=== PATIENT | female | born 1975 | race Caucasian/White ===

== ENCOUNTER → 2017-06-08 | Outpatient (CLI) | payer OTHER ==
[~2017-06-08] MED LIST: CYANOCOBAL1000 MCG/M PO; LEXAPRO 20 MG T20 MG PO; LORATADINE 10MG10 M1 PO; OMEPRAZOLE20 MG PO; PROBIOTIC250 MG PO; SPIRONOLACTONE25 MG PO
--- NOTE | 2017-06-13 11:52 | RADIOLOGY REPORT PS360 ---
DIG MAMM-SCREEN MARGARITO W/CAD CAD Screening COMPARISON: Digital mammograms 06/09/2016 INDICATION: There is a history of breast cancer in patient's paternal cousin and maternal cousin TECHNIQUE: Standard CC and MLO images were obtained. R2 CAD reviewed. FINDINGS: Scattered fibroglandular densities are seen throughout both breasts. There is no new or suspicious lesion in either breast and there are no suspicious microcalcifications. There is a stable tiny mammary node near the axilla tail right breast. There are several small nodes in both axilla. IMPRESSION: Fibrofatty parenchyma with no suspicious lesion seen recommend yearly follow-up BI-RADS CATEGORY: 2_Benign RECOMMENDED FOLLOWUP: 12M 12 MONTH FOLLOW-UP (A letter has been sent to the patient regarding results of the study.)
== END ==
LOC: RAD 09:03
DX: Z12.31 Encounter for screening mammogram for malignant neoplasm of breast (principal)
CPT/HCPCS: G0202